=== PATIENT | male | born 1945 | race Caucasian/White ===

== ENCOUNTER 2025-05-27 02:54 | Emergency (ER) | payer OTHER ==
[~2025-05-27] VITALS: Ht 165.1 cm; Wt 68.0 kg
[2025-05-27 03:31] LABS: PLATELET COUNT (AUTO) 200 K/uL (150-450); RED BLOOD CELL COUNT(AUTO) 4.31 MIL/uL (4.5-6.0); RED CELL DISTRIBUTION WIDTH 13.4 % (11.5-15.0); WHITE BLOOD COUNT (AUTO) 7.3 K/uL (4.3-11.0)
[2025-05-27 03:39] LABS: APPEARANCE,URINE CLEAR (CLEAR); BLOOD, URINE 3+ Ery/uL (NEGATIVE); LEUKOCYTE ESTERASE ,URINE NEGATIVE (NEGATIVE); NITRITE, URINE NEGATIVE (NEGATIVE); UGLUCOSE NEGATIVE (NEGATIVE)
[2025-05-27 03:46] LABS: CALCIUM, SERUM 8.5 mg/dL (8.5-10.1); CREATININE 1.1 mg/dL (0.6-1.3); SODIUM SERUM 136 mmol/L (136-145); UREA NITROGEN, BLOOD 28 mg/dL (7-18)
[2025-05-27 03:49] LABS: ADD URINE CULTURE NO; SQUAMOUS EPITHELIAL CELL,UR Few /HPF (None Seen)
[2025-05-27 03:52] LABS: ALCOHOL, BLOOD < 3 mg/dL (0-10); ASPARTATE AMINOTRANSFERASE 26 U/L (15-37); TOTAL PROTEIN, SERUM 7.2 g/dL (6.4-8.2)
[2025-05-27 03:55] LABS: AMPHETAMINE, URINE NEGATIVE (NEGATIVE); BARBITURATE, URINE NEGATIVE (NEGATIVE); CANNABINOID, URINE NEGATIVE (NEGATIVE); COCCAINE, URINE NEGATIVE (NEGATIVE); OPIATE, URINE NEGATIVE (NEGATIVE)
[2025-05-27 03:57] LABS: BENZODIAZEPINE, URINE POSITIVE (NEGATIVE)
[2025-05-27] MEDS ORDERED: QUET50TA PO (08:06)
[2025-05-27 08:28] VITALS: BP 138/85; TEMP 98.2; O2SAT 100
[2025-06-01] MEDS ORDERED: SERT100T PO (12:15)
[2025-06-01] MEDS ORDERED: FINA5TAB11 PO (12:15)
[2025-06-01] MEDS ORDERED: AMLO-212 PO (12:15)
== END 2025-05-27 08:31 | disposition home or self-care (01) ==
LOC: ER 02:56
DX: F32.A Depression, unspecified (principal); G47.00 Insomnia, unspecified; Z02.89 Encounter for other administrative examinations; I10 Essential (primary) hypertension; Z91.048 Other nonmedicinal substance allergy status; Z79.899 Other long term (current) drug therapy; Z20.822 Contact with and (suspected) exposure to COVID-19
CPT/HCPCS: 36415; 80048-TC; 80076-TC; 81001; 85025-TC; G0480